=== PATIENT | male | born 1940 | race Two or more races ===

== ENCOUNTER 2019-12-28 18:06 | Emergency (ER) | payer BC, MEDICARE ==
[~2019-12-28] VITALS: Ht 180.3 cm; Wt 85.0 kg
[2019-12-28 19:16] LABS: BASOPHILS % 0.3 % (0.0-2.0); EOSINOPHILS % 1.3 % (0.0-5.0); HEMATOCRIT. 39.1 % (42.0-52.0); HEMOGLOBIN. 12.1 g/dL (14.0-18.0); LYMPHOCYTES % 32.5 % (20.0-50.0); MEAN CORPUSCULAR HEMOGLOBIN 25.4 pg (28.0-32.0); MEAN PLATELET VOLUME 8.7 fl (7.4-10.4); MONOCYTES % 10.9 % (2.0-8.0); PLATELET 125 x1000/uL (130-400); RED BLOOD CELL COUNT 4.77 mill/uL (4.7-6.1); RED CELL DISTRIBUTION WIDTH 13.8 % (11.6-14.6)
[2019-12-28 19:17] LABS: CHLORIDE 108 mEq/L (98-107)
[2019-12-28 19:24] LABS: INR 1.2; PROTHROMBIN TIME 12.4 sec (9.6-11.0)
[2019-12-28 19:25] LABS: CREATINE KINASE 110 IU/L (39-308)
[2019-12-28] MEDS ORDERED: ASPIRIN 81MG TABLET PO ONE (20:15)
[2019-12-28] MEDS ORDERED: LORAZEPAM 2MG/ML CPJ IV ONE (22:15)
[2019-12-29 02:00] VITALS: BP 103/54
== END 2019-12-29 02:19 | disposition short-term general hospital (02) ==
LOC: ER 18:15
DX: G90.8 Other disorders of autonomic nervous system (principal); R07.89 Other chest pain; J98.11 Atelectasis; F03.90 Unspecified dementia, unspecified severity, without behavioral disturbance, psychotic disturbance, mood disturbance, and anxiety; R29.6 Repeated falls; Z91.81 History of falling
CPT/HCPCS: 36415; 70450; 71045; 80053; 82550; 84484; 85025; 85610; 93005; 96374; 99285; J2060